=== PATIENT | male | born 1965 | race Caucasian/White ===

== ENCOUNTER 2020-08-19 16:44 | Emergency (ER) | payer OTHER ==
[~2020-08-19] VITALS: Ht 185.4 cm; Wt 127.0 kg
[2020-08-19] MEDS ORDERED: CHLORTHALIDONE25 MG PO (17:00)
[2020-08-19] MEDS ORDERED: BUSPIRONE HCL10 MG PO (17:00)
[2020-08-19] MEDS ORDERED: VENLAFAXINE HCL75 MG PO (17:01)
[2020-08-19] MEDS ORDERED: MIRTAZAPINE7.5 MG PO (17:01)
[2020-08-19] MEDS ORDERED: ASPIRIN81 MG PO (17:02)
[2020-08-19] MEDS ORDERED: ALPHA LIPOIC A300 MG PO (17:02)
[2020-08-19] MEDS ORDERED: AMLODIPINE BESY10 MG PO (17:02)
[2020-08-19] MEDS ORDERED: MELATONIN5 M5 PO (17:03)
[2020-08-19] MEDS ORDERED: CAPZASIN-HP42.5 GM (17:03)
[2020-08-19] MEDS ORDERED: LOSARTAN POTAS100 MG PO (17:03)
[2020-08-19] MEDS ORDERED: GLIPIZIDE XL10 MG PO (17:04)
[2020-08-19] MEDS ORDERED: ATORVASTATIN CA40 MG PO (17:04)
[2020-08-19] MEDS ORDERED: GABAPENTIN600 MG PO (17:04)
== END 2020-08-19 18:47 | disposition home or self-care (01) ==
LOC: ED 16:44
DX: M51.36 Other intervertebral disc degeneration, lumbar region (principal); R32 Unspecified urinary incontinence; E11.9 Type 2 diabetes mellitus without complications; I10 Essential (primary) hypertension; Z88.0 Allergy status to penicillin; Z91.040 Latex allergy status; Z79.899 Other long term (current) drug therapy; Z79.82 Long term (current) use of aspirin
CPT/HCPCS: 99283

== ENCOUNTER 2021-02-16 13:00 | Emergency (ER) | payer OTHER ==
[~2021-02-16] VITALS: Ht 185.4 cm; Wt 127.0 kg
[~2021-02-16 13:00] MED LIST: ALPHA LIPOIC A300 MG PO; AMLODIPINE BESY10 MG PO; ASPIRIN81 MG PO; ATORVASTATIN CA40 MG PO; BUSPIRONE HCL10 MG PO; CAPZASIN-HP42.5 GM; CHLORTHALIDONE25 MG PO; GABAPENTIN600 MG PO; GLIPIZIDE XL10 MG PO; LOSARTAN POTAS100 MG PO; MELATONIN5 M5 PO; MIRTAZAPINE7.5 MG PO; VENLAFAXINE HCL75 MG PO
== END 2021-02-16 16:02 | disposition home or self-care (01) ==
LOC: ED 13:00
DX: S39.012A Strain of muscle, fascia and tendon of lower back, initial encounter (principal); S00.93XA Contusion of unspecified part of head, initial encounter; E11.65 Type 2 diabetes mellitus with hyperglycemia; I10 Essential (primary) hypertension; Z88.5 Allergy status to narcotic agent; Z88.0 Allergy status to penicillin; Z91.040 Latex allergy status; Z88.8 Allergy status to other drugs, medicaments and biological substances; Z79.899 Other long term (current) drug therapy; Z79.82 Long term (current) use of aspirin; W03.XXXA Other fall on same level due to collision with another person, initial encounter
CPT/HCPCS: 70450; 72125; 72128; 72131; 80053; 81001; 85025; 99284-25